=== PATIENT | male | born 1965 ===

== ENCOUNTER 2021-07-17 09:27 | Day surgery (SDC) | payer OTHER | END 2021-07-17 15:10 | disposition home or self-care (01) | LOC: AMB-ENDOS 09:27 → EDBD 13:30 → AMB-ENDOS 13:30 | PROVIDERS: ATTEND Surgery | DX: D12.3 Benign neoplasm of transverse colon (principal); K62.1 Rectal polyp; Z20.822 Contact with and (suspected) exposure to COVID-19; Z12.11 Encounter for screening for malignant neoplasm of colon ==